=== PATIENT | female | born 1930 | race African-American/Black ===

== ENCOUNTER 2018-03-11 04:35 | Inpatient (IN) | payer OTHER ==
[~2018-03-11] VITALS: Ht 162.6 cm; Wt 57.2 kg
[2018-03-11] VITALS (19 sets, daily range): BP systolic 123–158; BP diastolic 31–90
[~2018-03-11 04:35] MED LIST: ATOR10TA69 PO; FURO-152 PO; GLIP5TAB12 PO; LISI2.5T47 PO; METF500T6 PO
[2018-03-11] MEDS ORDERED: METHYLPREDNISOLONE SOD SUCC 125 MG/2 ML VIAL IV STA (04:37)
[2018-03-11] MEDS ORDERED: IPRATROPIUM/ALBUTEROL 0.5-3(2.5)MG/3ML NEB HHN ONE (04:45)
[2018-03-11] MEDS ORDERED: ASPIRIN 81MG TABLET PO ONE (04:45)
[2018-03-11 05:06] LABS: MEAN CORPUSCULAR HEMOGLOBIN 13.8 pg (28.0-32.0); MEAN CORPUSCULAR VOLUME 52.3 fL (81.0-99.0); MEAN PLATELET VOLUME 9.5 fl (7.4-10.4); PLATELET 523 x1000/uL (130-400); RED BLOOD CELL COUNT 3.68 mill/uL (4.2-5.4); RED CELL DISTRIBUTION WIDTH 23.3 % (11.6-14.6)
[2018-03-11 05:13] LABS: CHLORIDE 105 mEq/L (98-107)
[2018-03-11 05:15] LABS: HEMATOCRIT. 19.2 % (36.0-48.0); HEMOGLOBIN. 5.1 g/dL (12.0-16.0)
[2018-03-11 05:17] LABS: D-DIMER 0.77 mg/L FEU (<0.50); INR 1.1; PARTIAL THROMBOPLASTIN TIME 23.6 sec (23.4-31.0); PROTHROMBIN TIME 11.8 sec (9.4-11.6)
[2018-03-11 05:18] LABS: ETHANOL BLOOD < 10 mg/dL
[2018-03-11] MEDS ORDERED: FUROSEMIDE 40MG/4ML VIAL IVP ONE (05:45)
[2018-03-11 05:58] LABS: BG BASE EXCESS -7.2 mmol/L (-2.0-2.0); BG CARBOXYHEMOGLOBIN 1.5 % (0.5-1.5); BG DEOXYHEMOGLOBIN 0.3 % (0.0-5.0); BG FRACTION INSPIRED OXYGEN 60; BG HCO3 ACT 17.6 mmol/L (22.0-26.0); BG METHEMOGLOBIN 0.7 % (0.0-1.5); BG OXYGEN SATURATION 99.7 % (92.0-98.5); BG OXYHEMOGLOBIN 97.5 % (94.0-97.0); BG PCO2 31.3 mmHg (35.0-45.0); BG PH 7.367 (7.350-7.450); BG PO2 273.4 mmHg (75.0-100.0); BG SAMPLE SITE RIGHT RADIAL; BG TOTAL HEMOGLOBIN 5.4 g/dL (12.0-18.0); BG VENT MODE MASK - BIPAP; BG VENT RATE 14 set
[2018-03-11 06:54] LABS: PLATELET ESTIMATE INCREASED
[2018-03-11] MEDS ORDERED: GUAIFENESIN 200MG/10ML SUGAR FREE UDC PO PRN (08:30)
[2018-03-11] MEDS ORDERED: ONDANSETRON HCL 4MG/2ML VIAL IV PRN (08:30)
[2018-03-11] MEDS ORDERED: IPRATROPIUM/ALBUTEROL 0.5-3(2.5)MG/3ML NEB INH PRN (08:30)
[2018-03-11] MEDS ORDERED: CLONIDINE 0.1MG TABLET PO PRN (08:30)
[2018-03-11] MEDS ORDERED: ACETAMINOPHEN 325MG TABLET PO PRN (08:30)
[2018-03-11] MEDS: IPRATROPIUM/ALBUTEROL 0.5-3(2.5)MG/3ML NEB HHN SCH ×3 (11:45→20:24)
[2018-03-11] MEDS: ENOXAPARIN 40MG/0.4ML SYR SUBCUT SCH (12:07)
[2018-03-11] MEDS: FUROSEMIDE 40MG/4ML VIAL IVP SCH (12:07)
[2018-03-11] MEDS: DOCUSATE SODIUM 100MG CAPSULE PO SCH (12:07)
[2018-03-11] MEDS: AMLODIPINE 5MG TABLET PO SCH (12:16)
[2018-03-11] MEDS: METOLAZONE 2.5MG TABLET PO SCH (13:19)
[2018-03-11 13:50] LABS: BG BASE EXCESS -8.8 mmol/L (-2.0-2.0); BG CARBOXYHEMOGLOBIN 1.3 % (0.5-1.5); BG DEOXYHEMOGLOBIN 2.1 % (0.0-5.0); BG HCO3 ACT 15.5 mmol/L (22.0-26.0); BG METHEMOGLOBIN 0.5 % (0.0-1.5); BG OXYGEN SATURATION 97.9 % (92.0-98.5); BG OXYHEMOGLOBIN 96.1 % (94.0-97.0); BG PCO2 27.4 mmHg (35.0-45.0); BG PH 7.371 (7.350-7.450); BG PO2 108.9 mmHg (75.0-100.0); BG SAMPLE SITE RIGHT RADIAL; BG TOTAL HEMOGLOBIN 7.2 g/dL (12.0-18.0); BG VENT MODE NASAL CANNULA
[2018-03-11] MEDS ORDERED: LIDOCAINE HCL/PF 1% 2ML VIAL ONE (15:15)
[2018-03-11] MEDS: METHYLPREDNISOLONE SOD SUCC 40 MG/ML VIAL IV SCH ×2 (15:19→21:27)
[2018-03-11 15:23] LABS: CHLORIDE 100 mEq/L (98-107); MEAN CORPUSCULAR HEMOGLOBIN 16.3 pg (28.0-32.0); MEAN CORPUSCULAR VOLUME 56.5 fL (81.0-99.0); PLATELET 459 x1000/uL (130-400); RED BLOOD CELL COUNT 3.91 mill/uL (4.2-5.4)
[2018-03-11 15:37] LABS: HEMOGLOBIN. 6.4 g/dL (12.0-16.0)
[2018-03-11 15:38] LABS: HEMATOCRIT. 22.1 % (36.0-48.0)
[2018-03-11 16:17] LABS: BG BASE EXCESS -4.5 mmol/L (-2.0-2.0); BG BILEVEL POS AIRWAY PRESSURE 15/5; BG CARBOXYHEMOGLOBIN 1.4 % (0.5-1.5); BG DEOXYHEMOGLOBIN 0.7 % (0.0-5.0); BG HCO3 ACT 19.3 mmol/L (22.0-26.0); BG METHEMOGLOBIN 0.3 % (0.0-1.5); BG OXYGEN SATURATION 99.3 % (92.0-98.5); BG OXYHEMOGLOBIN 97.6 % (94.0-97.0); BG PCO2 29.8 mmHg (35.0-45.0); BG PH 7.429 (7.350-7.450); BG PO2 161.4 mmHg (75.0-100.0); BG SAMPLE SITE RIGHT BRACHIAL; BG VENT MODE MASK - BIPAP; BG VENT RATE 14 set
[2018-03-11 18:41] LABS: PLATELET ESTIMATE INCREASED
[2018-03-11] MEDS ORDERED: DEXTROSE 50% WATER 50ML SYRINGE IV PRN (18:45)
[2018-03-11] MEDS: BLOOD SUGAR DIAGNOSTIC STRIP TEST SCH ×2 (18:55→21:18)
[2018-03-11] MEDS: INSULIN LISPRO 100 UNITS/ML SUBCUT SCH ×2 (18:55→21:27)
[2018-03-11] MEDS ORDERED: BLOOD SUGAR DIAGNOSTIC STRIP TEST SCH (21:00)
[2018-03-11] MEDS ORDERED: INSULIN LISPRO 100 UNITS/ML SUBCUT SCH (21:00)
[2018-03-12] VITALS (14 sets, daily range): BP systolic 104–144; BP diastolic 57–76
[2018-03-12] MEDS: IPRATROPIUM/ALBUTEROL 0.5-3(2.5)MG/3ML NEB HHN SCH ×5 (00:41→14:50)
[2018-03-12 01:48] LABS: HEMOGLOBIN 9.3 g/dL (12.0-16.0)
[2018-03-12 01:56] LABS: INR 1.2
[2018-03-12 01:59] LABS: CREATINE KINASE MB FRACTION 1.9 ng/mL (0.5-3.6)
[2018-03-12] MEDS: METHYLPREDNISOLONE SOD SUCC 40 MG/ML VIAL IV SCH ×2 (05:59→14:42)
[2018-03-12] MEDS: BLOOD SUGAR DIAGNOSTIC STRIP TEST SCH ×3 (05:59→16:51)
[2018-03-12 06:33] LABS: HEMOGLOBIN. 8.7 g/dL (12.0-16.0); MEAN CORPUSCULAR HEMOGLOBIN 19.1 pg (28.0-32.0); MEAN PLATELET VOLUME 9.3 fl (7.4-10.4); PLATELET 403 x1000/uL (130-400); RED BLOOD CELL COUNT 4.52 mill/uL (4.2-5.4); RED CELL DISTRIBUTION WIDTH 38.3 % (11.6-14.6)
[2018-03-12 07:00] LABS: BG CARBOXYHEMOGLOBIN 0.9 % (0.5-1.5); BG HCO3 ACT 21.3 mmol/L (22.0-26.0); BG METHEMOGLOBIN 0.2 % (0.0-1.5); BG OXYGEN SATURATION 90.9 % (92.0-98.5); BG OXYHEMOGLOBIN 89.9 % (94.0-97.0); BG PCO2 34.7 mmHg (35.0-45.0); BG PH 7.405 (7.350-7.450); BG PO2 59.6 mmHg (75.0-100.0); BG SAMPLE SITE RIGHT BRACHIAL; BG TOTAL HEMOGLOBIN 9.6 g/dL (12.0-18.0); BG VENT MODE ROOM AIR
[2018-03-12 07:18] LABS: CHLORIDE 102 mEq/L (98-107)
[2018-03-12] MEDS: INSULIN LISPRO 100 UNITS/ML SUBCUT SCH ×3 (07:45→16:55)
[2018-03-12] MEDS: DOCUSATE SODIUM 100MG CAPSULE PO SCH (08:16)
[2018-03-12] MEDS: FUROSEMIDE 40MG/4ML VIAL IVP SCH (08:16)
[2018-03-12] MEDS: METOLAZONE 2.5MG TABLET PO SCH (08:16)
[2018-03-12] MEDS: ENOXAPARIN 40MG/0.4ML SYR SUBCUT SCH (08:17)
[2018-03-12] MEDS: AMLODIPINE 5MG TABLET PO SCH (08:17)
[2018-03-12] MEDS ORDERED: METOLAZONE 2.5MG TABLET PO SCH (09:00)
[2018-03-12 09:48] LABS: NUCLEATED RED BLOOD CELLS 4 /100 WBC
[2018-03-12 09:50] LABS: PLATELET ESTIMATE NORMAL
[2018-03-12 11:51] LABS: *AMPHETAMINES SCREEN URINE NEGATIVE (NEGATIVE); *BARBITURATES SCREEN URINE NEGATIVE (NEGATIVE); *BENZODIAZEPINES SCREEN URINE NEGATIVE (NEGATIVE); *COCAINE SCREEN URINE NEGATIVE (NEGATIVE)
[2018-03-12 11:53] LABS: CANNABINOID URINE SCREEN NEGATIVE (NEGATIVE); METHADONE URINE SCREEN NEGATIVE (NEGATIVE); OPIATES URINE SCREEN NEGATIVE (NEGATIVE); PHENCYCLIDINE URINE SCREEN NEGATIVE (NEGATIVE)
[2018-03-12] MEDS ORDERED: CARVEDILOL 6.25 MG TABLET PO SCH (21:00)
== END 2018-03-12 19:02 | disposition short-term general hospital (02) | DRG 280 ==
LOC: EDBEDREQTM 06:02 → EDBEDREQ 06:02 → EDBEDREQSVC 06:02 → ENRESERV 06:17 → CANRESERV 06:17 → ENRESERV 06:45 → ER 07:16 → 3WST 07:17
PROVIDERS: ADMIT Internal Medicine Geriatric Medicine; ATTEND Internal Medicine Geriatric Medicine
PROC: 30233N1 Transfusion of Nonautologous Red Blood Cells into Peripheral Vein, Percutaneous Approach (ICD-10-PCS; principal; 2018-03-11)
PROC: 5A09357 Assistance with Respiratory Ventilation, Less than 24 Consecutive Hours, Continuous Positive Airway Pressure (ICD-10-PCS; 2018-03-11)
DX: I11.0 Hypertensive heart disease with heart failure (principal); J96.01 Acute respiratory failure with hypoxia; I21.4 Non-ST elevation (NSTEMI) myocardial infarction; I26.99 Other pulmonary embolism without acute cor pulmonale; N17.9 Acute kidney failure, unspecified; I50.23 Acute on chronic systolic (congestive) heart failure; D47.3 Essential (hemorrhagic) thrombocythemia; E78.00 Pure hypercholesterolemia, unspecified; D50.0 Iron deficiency anemia secondary to blood loss (chronic); E78.5 Hyperlipidemia, unspecified; E11.51 Type 2 diabetes mellitus with diabetic peripheral angiopathy without gangrene; M19.90 Unspecified osteoarthritis, unspecified site; J44.9 Chronic obstructive pulmonary disease, unspecified; M81.0 Age-related osteoporosis without current pathological fracture; Z79.84 Long term (current) use of oral hypoglycemic drugs; Z79.899 Other long term (current) drug therapy; Z87.891 Personal history of nicotine dependence; Z90.710 Acquired absence of both cervix and uterus
CPT/HCPCS: 36415; 36600; 71045; 78582; 80048; 80053; 80061; 80305; 82270; 82375; 82553; 82805; 82962; 83036; 83540; 83550; 83880; 84443; 84484; 85014; 85018; 85025; 85379; 85384; 85610; 85730; 86850; 86900; 86920; 87086; 93005; 93970; A9558; G0482; J1650; J1815; J1940; J2920; J2930; J3490; J7040; J7620; P9016

== ENCOUNTER 2018-10-06 01:30 | Inpatient (IN) | payer OTHER ==
[2018-10-06] VITALS (7 sets, daily range): BP systolic 130–161; BP diastolic 54–85
[~2018-10-06] VITALS: Ht 165.1 cm; Wt 57.6 kg
[~2018-10-06 01:30] MED LIST changes: +METF-414 PO; -METF500T6 PO
[2018-10-06] MEDS ORDERED: ALBUTEROL (0.083%) 2.5MG/3ML NEB HHN STA (01:42)
[2018-10-06] MEDS ORDERED: MAGNESIUM 2 G PREMIX 50 ML IV STA (01:42)
[2018-10-06] MEDS ORDERED: METHYLPREDNISOLONE SOD SUCC 125 MG/2 ML VIAL IV STA (01:42)
[2018-10-06] MEDS ORDERED: IPRATROPIUM BROMIDE (0.02%) 0.5MG/2.5ML NEB HHN STA (01:42)
[2018-10-06 02:21] LABS: HEMATOCRIT 37.1 % (36.0-48.0); HEMOGLOBIN 11.1 g/dL (12.0-16.0); MEAN CORPUSCULAR HEMOGLOBIN 21.5 pg (28.0-32.0); MEAN CORPUSCULAR VOLUME 72.1 fL (81.0-99.0); PLATELET 240 x1000/uL (130-400); RED BLOOD CELL COUNT 5.14 mill/uL (4.2-5.4); RED CELL DISTRIBUTION WIDTH 18.7 % (11.6-14.6)
[2018-10-06] MEDS ORDERED: FUROSEMIDE 40MG/4ML VIAL IVP NR (03:15)
[2018-10-06 03:35] LABS: CHLORIDE 107 mEq/L (98-107)
[2018-10-06] MEDS ORDERED: LEVOFLOXACIN 500MG PREMIX 100 ML IV SCH ×2 (08:15→09:00)
[2018-10-06] MEDS ORDERED: ACETAMINOPHEN 325MG TABLET PO PRN (08:15)
[2018-10-06] MEDS ORDERED: MAGNESIUM/ALUMINUM HYDROXIDE/SIMETHICONE 30ML UDC PO PRN (08:15)
[2018-10-06] MEDS ORDERED: TRAMADOL 50MG TABLET PO PRN (08:15)
[2018-10-06] MEDS ORDERED: IPRATROPIUM/ALBUTEROL 0.5-3(2.5)MG/3ML NEB INH PRN (08:15)
[2018-10-06] MEDS ORDERED: NITROGLYCERIN 0.4MG TABLET SL SL PRN (08:15)
[2018-10-06] MEDS ORDERED: DOCUSATE SODIUM 100MG CAPSULE PO PRN (08:15)
[2018-10-06] MEDS ORDERED: ONDANSETRON HCL 4MG/2ML INJ IV PRN (08:15)
[2018-10-06] MEDS ORDERED: ZOLPIDEM TARTRATE 5MG TABLET PO PRN (08:15)
[2018-10-06] MEDS ORDERED: CLONIDINE 0.1MG TABLET PO PRN (08:15)
[2018-10-06] MEDS ORDERED: NA PHOS,M-B/NA PHOS,DI-BA ENEMA 118ML PR PRN (08:15)
[2018-10-06] MEDS ORDERED: GUAIFENESIN 200MG/10ML SUGAR FREE UDC PO PRN (08:15)
[2018-10-06] MEDS: SPIRONOLACTONE 25MG TABLET PO SCH ×2 (12:15→20:14)
[2018-10-06] MEDS: ENOXAPARIN 40MG/0.4ML SYR SUBCUT SCH (12:15)
[2018-10-06] MEDS: FAMOTIDINE 20MG TABLET PO SCH (12:15)
[2018-10-06] MEDS: FUROSEMIDE 40MG/4ML VIAL IVP SCH ×2 (12:15→20:13)
[2018-10-06] MEDS: ASPIRIN 325MG EC TABLET PO SCH (12:15)
[2018-10-06] MEDS ORDERED: DEXTROSE 50% WATER 50ML SYRINGE IV PRN (13:15)
[2018-10-06] MEDS: BLOOD SUGAR DIAGNOSTIC STRIP TEST SCH ×3 (13:41→20:14)
[2018-10-06] MEDS: INSULIN LISPRO 100 UNITS/ML SUBCUT SCH ×3 (13:47→20:45)
[2018-10-06] MEDS: METHYLPREDNISOLONE SOD SUCC 125 MG/2 ML VIAL IV SCH ×2 (13:47→20:14)
[2018-10-06 15:16] LABS: CREATINE KINASE MB FRACTION 3.6 ng/mL (0.5-3.6)
[2018-10-06] MEDS: IPRATROPIUM/ALBUTEROL 0.5-3(2.5)MG/3ML NEB HHN SCH ×2 (16:40→21:22)
[2018-10-06] MEDS: CARVEDILOL 3.125 MG TABLET PO SCH (18:15)
[2018-10-06 18:31] LABS: *AMPHETAMINES SCREEN URINE NEGATIVE (NEGATIVE); *BARBITURATES SCREEN URINE NEGATIVE (NEGATIVE); *BENZODIAZEPINES SCREEN URINE NEGATIVE (NEGATIVE); *COCAINE SCREEN URINE NEGATIVE (NEGATIVE); METHADONE URINE SCREEN NEGATIVE (NEGATIVE)
[2018-10-06 18:32] LABS: CANNABINOID URINE SCREEN NEGATIVE (NEGATIVE); OPIATES URINE SCREEN NEGATIVE (NEGATIVE); PHENCYCLIDINE URINE SCREEN NEGATIVE (NEGATIVE)
[2018-10-06] MEDS: GUAIFENESIN/DM 600MG/30MG ER TAB 12HR PO SCH (20:14)
[2018-10-06] MEDS ORDERED: ATORVASTATIN CALCIUM 40MG TABLET PO SCH (21:00)
[2018-10-06] MEDS ORDERED: INSULIN GLARGINE UD 100 UNITS/ML SYR SUBCUT SCH (22:00)
[2018-10-07] VITALS (11 sets, daily range): BP systolic 129–156; BP diastolic 54–83
[2018-10-07] MEDS: IPRATROPIUM/ALBUTEROL 0.5-3(2.5)MG/3ML NEB HHN SCH ×6 (00:29→20:26)
[2018-10-07 00:48] LABS: CREATINE KINASE MB FRACTION 3.1 ng/mL (0.5-3.6)
[2018-10-07] MEDS: METHYLPREDNISOLONE SOD SUCC 125 MG/2 ML VIAL IV SCH ×2 (06:05→13:17)
[2018-10-07] MEDS: CARVEDILOL 3.125 MG TABLET PO SCH ×2 (06:06→17:19)
[2018-10-07] MEDS: BLOOD SUGAR DIAGNOSTIC STRIP TEST SCH ×3 (07:56→17:12)
[2018-10-07] MEDS: INSULIN LISPRO 100 UNITS/ML SUBCUT SCH ×3 (08:11→18:53)
[2018-10-07] MEDS: SPIRONOLACTONE 25MG TABLET PO SCH (08:12)
[2018-10-07] MEDS: ASPIRIN 325MG EC TABLET PO SCH (08:12)
[2018-10-07] MEDS: FAMOTIDINE 20MG TABLET PO SCH (08:12)
[2018-10-07] MEDS: FUROSEMIDE 40MG/4ML VIAL IVP SCH (08:12)
[2018-10-07] MEDS: GUAIFENESIN/DM 600MG/30MG ER TAB 12HR PO SCH (08:12)
[2018-10-07] MEDS ORDERED: LEVOFLOXACIN 250MG PREMIX 50 ML IV SCH (09:00)
[2018-10-07] MEDS: ENOXAPARIN 40MG/0.4ML SYR SUBCUT SCH (13:17)
== END 2018-10-07 23:43 | disposition short-term general hospital (02) | DRG 291 ==
LOC: ER 01:30 → 5EST 03:17 → EDBEDREQ 03:22 → EDBEDREQTM 03:22 → ENRESERV 09:45
PROVIDERS: ADMIT Internal Medicine; ATTEND Internal Medicine
PROC: 5A09357 Assistance with Respiratory Ventilation, Less than 24 Consecutive Hours, Continuous Positive Airway Pressure (ICD-10-PCS; principal; 2018-10-06)
DX: I11.0 Hypertensive heart disease with heart failure (principal); J96.00 Acute respiratory failure, unspecified whether with hypoxia or hypercapnia; E44.0 Moderate protein-calorie malnutrition; J44.1 Chronic obstructive pulmonary disease with (acute) exacerbation; E11.9 Type 2 diabetes mellitus without complications; I50.43 Acute on chronic combined systolic (congestive) and diastolic (congestive) heart failure; E78.00 Pure hypercholesterolemia, unspecified; Z68.21 Body mass index [BMI] 21.0-21.9, adult; Z79.84 Long term (current) use of oral hypoglycemic drugs; Z79.899 Other long term (current) drug therapy; Z82.49 Family history of ischemic heart disease and other diseases of the circulatory system
CPT/HCPCS: 36415; 71045; 80061; 80305; 82550; 82553; 82962; 83036; 83880; 84484; 85027; 93306; 93970; 94640; 94644; 94660; 96374; 96375; 99285; J1650; J1815; J1940; J1956; J2930; J3475; J7050; J7611; J7620